=== PATIENT | female | born 1955 | race Caucasian/White ===

== ENCOUNTER → 2016-12-23 | Outpatient (CLI) | payer BC | END | disposition home or self-care (01) | LOC: MW.CHPM 08:19 | PROVIDERS: ATTEND Anesthesiology | DX: Z51.81 Encounter for therapeutic drug level monitoring (principal); Z79.891 Long term (current) use of opiate analgesic | CPT/HCPCS: 80305 ==

== ENCOUNTER → 2017-02-12 | Outpatient (CLI) | payer BC | LOC: MW.CHPM 09:09 | PROVIDERS: ATTEND Anesthesiology | DX: Z51.81 Encounter for therapeutic drug level monitoring (principal); Z79.891 Long term (current) use of opiate analgesic | CPT/HCPCS: 80305 ==

== ENCOUNTER 2017-07-22 11:55 | Day surgery (SDC) | payer BC ==
[~2017-07-22 11:55] MED LIST: Betamethasone Acetate/Betamethasone Sod Phosphate 30 MG/5 ML MDV ONE; Iopamidol 408 MG/ML 50 ML SDV ONE; Lidocaine 2% 5 ML SDV ONE; Ropivacaine 0.5% 5 MG/ML 30 ML SDV ONE
--- NOTE | 2017-07-22 19:45 | OR ---
SURGEON: Lisa Borrero D.O. DATE OF PROCEDURE: 07/22/2017 OR STAFF PRESENT: 1. Lakshmi Richmond RN. 2. Cyndy Tsang RN. 3. RT Taj. WOUND CLASSIFICATION: I. PREOPERATIVE DIAGNOSIS: Thoracic facet arthropathy. POSTOPERATIVE DIAGNOSIS: Thoracic facet arthropathy. PROCEDURE PERFORMED: 1.Diagnostic and therapeutic T7,T8,T9 medial branch blocks bilateral 2. Fluoroscopic guidance for needle placement 3. Local with oral Valium for sedation SCREENING QUESTIONS: The patient answered "No" to all the following questions: 1. Are you allergic to iodine, Betadine or latex? 2. Do you have a bleeding disorder? 3. Are you on anti-inflammatories or blood thinners? 4. Do you have any current local or systemic infections? MEDICAL NECESSITY: This is a patient with chronic low back pain who comes in for the above diagnostic procedure. This procedure is being performed in accordance with national guidelines written by the [employer]; please see medical necessity note in chart. DESCRIPTION OF PROCEDURE: The patient had the procedure thoroughly explained including risks, benefits and alternatives. Consent was signed in my clinic indicating understanding and willingness to proceed. The patient presented to [facility] and was escorted to the dressing room to disrobe and change into a hospital gown. Preoperative history and screening were performed by my nurse. Vital signs were taken and stable. The patient reported that Valium 10 milligrams was taken prior to the procedure. The patient was brought back to the procedure room and placed in the prone position on the procedure room table. A pillow was placed under the abdomen in order to flatten the lumbar lordosis. The back was prepped with ChloraPrep and sterilely draped. All personnel in the procedure room were dressed in appropriate attire including surgical scrubs, head and shoe covers. This was to ensure sterility while in the treatment room. During the time fluoroscopy was in use all personnel in the operating room wore lead wilkinson with thyroid collars. Sterile technique was used during the procedure. The fluoroscope was positioned to provide a right oblique view. Then the right T7 medial branch block was begun by anesthetizing the skin and soft tissues with 2 cubic centimeters of 2% Preservative-Free Lidocaine with a 25-gauge 1.5 inch needle. There were no signs of infection at the site of needle skin insertions. Using fluoroscopic guidance a sterile 22-gauge 3.5 inch spinal needle was positioned at the superior lateral transverse process of T8. Precise needle placement was confirmed by fluoroscopy and 0.2 cubic centimeters of IsoVue-200 contrast dye which was injected through microbore tubing under live fluoroscopy and showed no intravascular flow pattern and adequate flow over the target medial branch. Then 0.5 cubic centimeters of Celestone and then0.5% Ropivacaine Preservative- Free was injected slowly without complications after negative aspiration. This was repeated on the left side for the left T7 medial branch block as above. Then the fluoroscope was positioned to provide a right oblique view for the right T8 medial branch. This was begun by anesthetizing the skin and soft tissues. The fluoroscope was positioned and a sterile 22-gauge 3.5 inch needle was placed at the junction of the superior lateral border of transverse process of T9 vertebral body.. Precise needle placement was confirmed by fluoroscopy. Then 0.2 cubic centimeters of IsoVue-200 contrast dye was injected through microbore tubing under live fluoroscopy and showed no intravascular flow pattern and adequate flow over the target medial branch. After negative aspiration, 0.5 cubic centimeters of Celestone0.5% Ropivacaine was injected without complications. this was repeated for the left T8 medial branch block at the left superior lateral border of the T9 vertebral body as above. The fluoroscope was then positioned to provide a right T9 medial branch block This was begun by anesthetizing the skin and soft tissues over the right sacral sulcus. Then using fluoroscopic guidance, a sterile 22-gauge 3.5 inch spinal needle was positioned at the right superior lateral transverse process of the T10 vertebral body. Precise needle placement was confirmed by fluoroscopy in AP and oblique views, and 0.2 cubic centimeters of IsoVue-200 contrast dye was injected through microbore tubing under live fluoroscopy and showed no intravascular flow pattern and adequate flow over the target nerves. After negative aspiration, 0.5 cubic centimeters of Celestone and then 0.5% Ropivacaine was injected. No complications were noted. this was repeated for the left T9 medial branch block On the left side at the superior lateral border of the T10 transverse process as above. The procedure was well tolerated and vital signs were stable during and after the procedure. The staff escorted the patient to the recovery area. The patient was given both oral and written discharge and followup instructions. The patient will follow up with a pain diary which will be evaluated over this evening doing things that would normally cause pain. We will evaluate the efficacy of the diagnostic lumbar medial branch blocks as the patient will follow up in the clinic the next day. The patient was given both oral and written discharge and followup instructions. The patient voiced understanding including understanding of those signs and symptoms that would require emergency care and knows how to contact the office if there are any questions or concerns in the meantime. PREOPERATIVE PAIN: 05/15. POSTOPERATIVE PAIN: 10/15. FOLLOWUP: Follow up in the pain clinic in 3 weeks. HOGLATASHA / CHACHO /[id number] NANETTE
== END 2017-07-22 14:30 | disposition home or self-care (01) ==
LOC: MW.SDS 11:55
PROVIDERS: ATTEND Nurse Practitioner Family
DX: G89.4 Chronic pain syndrome (principal); M51.34 Other intervertebral disc degeneration, thoracic region; M50.10 Cervical disc disorder with radiculopathy, unspecified cervical region; G58.8 Other specified mononeuropathies; M79.1 Myalgia; Z88.1 Allergy status to other antibiotic agents; Z79.891 Long term (current) use of opiate analgesic; Z79.899 Other long term (current) drug therapy; Z98.890 Other specified postprocedural states
CPT/HCPCS: 64490; 64491; J0702; J2795; Q9966; 64450

== ENCOUNTER → 2020-01-31 | Day surgery (SDC) | payer BC ==
[~2020-01-31] MED LIST changes: +Acetaminophen/HYDROcodone 325-5 MG Tab PO PRN; -Betamethasone Acetate/Betamethasone Sod Phosphate 30 MG/5 ML MDV ONE; -Iopamidol 408 MG/ML 50 ML SDV ONE; +Lactated Ringers 1,000 ML IV SCH; +Midazolam 1 MG/ML 2 ML SDV ONE; +Propofol 200 MG/20 ML SDV ONE; -Ropivacaine 0.5% 5 MG/ML 30 ML SDV ONE; +Sodium Chloride 0.9% 10 ML SDV IV PRN; +Sodium Chloride 0.9% 10 ML Syringe FLUSH PRN; +Sodium Chloride 0.9% 2.5 ML Syringe FLUSH PRN; +fentaNYL 100 MCG/2 ML SDV ONE
--- NOTE | 2020-01-31 08:57 | PCM.PREANE ---
Preanesthetic Assessment - Anesthesia/Transfusion/Family Hx Anesthesia History: Prior Anesthesia Without Reaction Family History of Anesthesia Reaction: No Transfusion History: No Prior Transfusion(s) - Review of Systems General: No Symptoms Pulmonary: No Symptoms Cardiovascular: No Symptoms Gastrointestinal: No Symptoms Neurological: No Symptoms Other: Reports: None - Physical Assessment NPO Status Date: 01/30/20 Height: 5 ft 3 in Weight: 69.4 kg ASA Class: 2 Mental Status: Alert & Oriented x3 Dentition: Reports: Normal Dentition ROM/Head Extension: Full Lungs: Clear to Auscultation, Normal Respiratory Effort Cardiovascular: Regular Rate, Regular Rhythm - Allergies Allergies/Adverse Reactions: Allergies Allergy/AdvReac Type Severity Reaction Status Date / Time metronidazole [From Flagyl] Allergy Nausea Verified 01/28/20 13:53 - Anesthesia Plan Pre-Op Medication Ordered: None - Acknowledgements Anesthesia Type Planned: Spinal Pt an Appropriate Candidate for the Planned Anesthesia: Yes Alternatives and Risks of Anesthesia Discussed w Pt/Guardian: Yes Pt/Guardian Understands and Agrees with Anesthesia Plan: Yes Additional Comments: PMH: migraine, IS PLAN: spinal PreAnesthesia Questionnaire Gastrointestinal History: Reports: Irritable Bowel Syndrome Other Gastrointestinal History: c-diff 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 , Musculoskeletal History: Reports: Back Pain, Chronic Neurological History: Reports: Other (See Below) Other Neuro History: degenerative disc disease Psychiatric History: Reports: Anxiety - Infectious Disease History Infectious Disease History: Reports: None - Past Surgical History Head Surgeries/Procedures: Reports: None HEENT Surgical History: Reports: Detached Retina GI Surgical History: Reports: Colonoscopy Female Surgical History: Reports: Section, D&C, Tubal Ligation Other Female Surgeries/Procedures: x3 - SUBSTANCE USE Smoking Status *Q: Never Smoker Recreational Drug Use History: No - HOME MEDS Home Medications: Home Meds Escitalopram [Lexapro] 20 mg PO DAILY 10/24/15 [History] Clobetasol [Clobetasol Propionate 0.05%] 1 dose TOP ASDIRECTED 01/28/20 [History ] Hydrocodone/Acetaminophen [Hydrocodone-Acetamin 7.5-325] 1 tab PO ASDIRECTED PRN 01/28/20 [History] Montelukast [Singulair] 10 mg PO DAILY 01/28/20 [History] Multivitamin [Daily Multiple Vitamin] 1 tab PO DAILY 01/28/20 [History] - CURRENT (IN HOUSE) MEDS Current Meds: Current Medications Lactated Ringer's (Ringers, Lactated) 1,000 mls @ 500 mls/hr IV BOLUS KAMILAH Sodium Chloride (Saline Flush) 10 ml FLUSH ASDIRECTED PRN PRN Reason: Keep Vein Open Sodium Chloride (Saline Flush) 2.5 ml FLUSH ASDIRECTED PRN PRN Reason: Keep Vein Open Sodium Chloride (Normal Saline) 10 ml IV ASDIRECTED PRN PRN Reason: IV Use
--- NOTE | 2020-01-31 10:40 | PCM.OPNOTE ---
- General Post-Op/Procedure Note Date of Surgery/Procedure: 01/31/20 Operative Procedure(s): D & C hysteroscopy Findings: 8 week sized anteverted uterus Normal appearing cervix and vagina Hysteroscopy showed proliferative endometrium in the anterior uterine wall , posterior wall was atrophic Pre Op Diagnosis: Postmenopausal bleeding Post-Op Diagnosis: same Anesthesia Technique: Spinal Primary Surgeon: Cee Mireles Secondary Surgeon: Donnell Burr Pathology: Endometrial currettings Fluid Replacement, Intraop: 700 EBL in mLs: 0 Complications: None Condition: Good
--- NOTE | 2020-01-31 14:24 | PCM.POSTAN ---
POST ANESTHESIA ASSESSMENT - MENTAL STATUS Mental Status: Alert, Oriented - VITAL SIGNS Vital Signs: Last Vital Signs Temp 36.5 C 01/31/20 10:55 Pulse 48 L 01/31/20 11:30 Resp 16 01/31/20 11:30 BP 127/74 01/31/20 11:30 Pulse Ox 99 01/31/20 11:30 - RESPIRATORY Respiratory Status: Respiratory Rate WNL, Airway Patent, O2 Saturation Stable - CARDIOVASCULAR CV Status: Pulse Rate WNL, Blood Pressure Stable - GASTROINTESTINAL GI Status: No Symptoms - POST OP HYDRATION Hydration Status: Adequate & Stable
--- NOTE | 2020-01-31 14:35 | PCM48HPAN ---
Post Anesthesia Note - EVALUATION WITHIN 48HRS OF ANESTHETIC Vital Signs in Normal Range: Yes Patient Participated in Evaluation: Yes Respiratory Function Stable: Yes Airway Patent: Yes Cardiovascular Function Stable: Yes Hydration Status Stable: Yes Pain Control Satisfactory: Yes Nausea and Vomiting Control Satisfactory: Yes Mental Status Recovered: Yes Vital Signs: Last Vital Signs Temp 36.5 C 01/31/20 10:55 Pulse 52 L 01/31/20 12:30 Resp 18 01/31/20 12:30 BP 120/70 01/31/20 12:30 Pulse Ox 98 01/31/20 12:30
[2020-01-31 15:44] VITALS: BP 128/52; PULSE 48
--- NOTE | 2020-01-31 17:05 | OR ---
SURGEON: JAYASHREE LOYOLA DATE OF PROCEDURE: 01/31/2020 PREOPERATIVE DIAGNOSIS: A 65-year-old with some postmenopausal bleeding. POSTOPERATIVE DIAGNOSIS: A 65-year-old with some postmenopausal bleeding. PROCEDURES: D and C hysteroscopy. IV FLUIDS: 700. ESTIMATED BLOOD LOSS: 0. ANESTHESIA: Spinal. NOTES AND FINDINGS: An 8 weeks size anteverted uterus. Cervix appeared normal. The endometrium anteriorly was proliferative and posteriorly was atrophic. BRIEF HISTORY ABOUT THE PATIENT: She is a 65-year-old who came in complaining of postmenopausal bleeding. She had an endometrial biopsy which showed endometrial polyp with a focus of papillary metaplasia. We consulted with [facility]MER/Oncology, who recommended D & C hysteroscopy with a second read. The patient was consented for the procedure. She was explained the risks, benefits, and alternatives and she decided to proceed. PROCEDURE IN DETAIL: The patient was taken to the operating room where spinal anesthesia was performed without difficulty. She was prepared and draped in the dorsal supine position, with an Derrell stirrups. Bimanual examination showed the above-noted findings. A bivalve speculum was placed into the cervix. An Allis was used to grasp the anterior lip of the cervix. Uterus was carefully dilated to accommodate the 5 mm hysteroscope, which was advanced into the uterine cavity with the distending media. The endometrial cavity was distended with fluid and the cavity was visualized with the above-noted findings. Then, the hysteroscope was withdrawn and endometrial curetting was done with all mercer of the endometrium. Hysteroscope was then advanced again and the endometrium was visualized to ensure adequate curetting was done, which was noted. The hysteroscope was withdrawn from the endometrial cavity. The moderate amount of endometrium was sent to pathology and pathology was informed that it was a second read also. Pictures were taken of the endometrial cavity. Then, the endometrial curetting was done also again and moderate amount of tissue was sent for pathology, after which the Allis was removed from the anterior lip. The speculum was removed. All instrument and pad counts were correct x2. The patient was sent to the recovery room in stable condition. PEBBLES FLOR /[id number] NANETTE
== END | disposition home or self-care (01) ==
LOC: MW.SDS 08:15
PROVIDERS: ATTEND Obstetrics & Gynecology
DX: N85.8 Other specified noninflammatory disorders of uterus (principal); Z79.899 Other long term (current) drug therapy; Z88.8 Allergy status to other drugs, medicaments and biological substances
CPT/HCPCS: 36415; 58558; 85027; 88305; A9270; J2001; J2250; J2704; J3010; J7120; 00952

== ENCOUNTER 2020-11-23 08:11 | Emergency (ER) | payer BC ==
--- NOTE | 2020-11-23 08:15 | EDM.PDOC ---
ED HPI GENERAL MEDICAL PROBLEM - General Chief Complaint: Chest Pain Stated Complaint: TIGHTNESS IN CHEST Time Seen by Provider: 11/23/20 08:30 Source of Information: Reports: Patient History Limitations: Reports: No Limitations - History of Present Illness INITIAL COMMENTS - FREE TEXT/NARRATIVE: 65-year-old female past medical history hypertension, depression presents for chest pain. Patient is a good historian. She states that she has had on and off mild substernal chest pain that feels tight or stabbing for the last 2 to 3 days. She does note that she started working out over the last 3 days which she used to not do. She also notes that she has weaned herself off of her antidepressant over the last 1 month. This morning she woke up with an aching feeling in her left arm prompting her to seek medical attention. She denies any associated shortness of breath. She does note some generalized weakness yesterday with some feelings of nausea but no vomiting. She has never had a cardiac stress test. She does have follow-up with her primary care physician to discuss cardiac stress testing and all of these issues early next week, but wanted to rule out anything emergent prompting her ER visit this morning. - Related Data Allergies Allergy/AdvReac Type Severity Reaction Status Date / Time metronidazole [From Flagyl] Allergy Nausea Verified 11/23/20 08:13 Home Meds: Home Meds . 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 , Musculoskeletal History: Reports: Back Pain, Chronic Neurological History: Reports: Other (See Below) Other Neuro History: degenerative disc disease Psychiatric History: Reports: Anxiety - Infectious Disease History Infectious Disease History: Reports: None - Past Surgical History Head Surgeries/Procedures: Reports: None HEENT Surgical History: Reports: Detached Retina GI Surgical History: Reports: Colonoscopy Female Surgical History: Reports: Section, D&C, Tubal Ligation Other Female Surgeries/Procedures: x3 Social & Family History - Family History Family Medical History: No Pertinent Family History - Caffeine Use Caffeine Use: Reports: Coffee ED ROS GENERAL - Review of Systems Review Of Systems: Comprehensive ROS is negative, except as noted in HPI. ED EXAM, GENERAL - Physical Exam Exam: See Below Exam Limited By: No Limitations General Appearance: Alert, WD/WN, No Apparent Distress Throat/Mouth: Normal Voice, No Airway Compromise Head: Atraumatic, Normocephalic Respiratory/Chest: No Respiratory Distress, Lungs Clear, Normal Breath Sounds, No Accessory Muscle Use Cardiovascular: Normal Peripheral Pulses, Regular Rate, Rhythm, No Edema GI/Abdominal: Soft, Non-Tender Extremities: Normal Inspection Neurological: Alert Psychiatric: Normal Affect, Normal Mood Skin Exam: Warm, Dry, Intact, Normal Color #1 Interpretation EKG Date: 11/23/20 Time: 08:11 Rhythm: NSR Rate (Beats/Min): 58 [place]: Normal P-Wave: Present QRS: Normal ST-T: Normal QT: Normal NH/PQ Interval: 131 Comparison: NA - No Prior EKG EKG Interpretation Comments: no evidence of ischemia Course - Vital Signs Last Recorded V/S: Last Vital Signs Temp 95.4 F L 11/23/20 08:13 Pulse 63 11/23/20 08:13 Resp 18 11/23/20 08:13 BP 121/72 11/23/20 08:13 Pulse Ox 97 11/23/20 08:13 - Orders/Labs/Meds Orders: Active Orders 24 hr Category Date Time Status Cardiac Monitoring [RC] . DIRECTED Care 11/23/20 08:25 Active EKG Documentation Completion [RC] STAT Care 11/23/20 08:25 Active Pulse Oximetry [RC] ASDIRECTED Care 11/23/20 08:25 Active Sodium Chloride 0.9% [Saline Flush] Med 11/23/20 08:25 Active 10 ml FLUSH ASDIRECTED PRN Sodium Chloride 0.9% [Saline Flush] Med 11/23/20 08:25 Active 2.5 ml FLUSH ASDIRECTED PRN Saline Lock Insert [OM.PC] Stat Oth 11/23/20 08:25 Ordered Medication Orders Sodium Chloride (Saline Flush) 10 ml FLUSH ASDIRECTED PRN PRN Reason: Keep Vein Open Last Admin: 11/23/20 08:44 Dose: 10 ml Documented by: NICHOLE Sodium Chloride (Saline Flush) 2.5 ml FLUSH ASDIRECTED PRN PRN Reason: Keep Vein Open Last Admin: 11/23/20 08:44 Dose: 2.5 ml Documented by: NICHOLE Labs: Laboratory Tests 11/23/20 11/23/2011/23/21 Range/Units 08:19 08:19 08:19 WBC 7.08 (4.0-11.0) K/uL RBC 4.66 (4.30-5.90) M/uL Hgb 15.7 (12.0-16.0) g/dL Hct 46.0 (36.0-46.0) % MCV 98.7 H (80.0-98.0) fL MCH 33.7 H (27.0-32.0) pg MCHC 34.1 (31.0-37.0) g/dL RDW Std Deviation 45.5 (28.0-62.0) fl RDW Coeff of Alia 13 (11.0-15.0) % Plt Count 272 (150-400) K/uL MPV 9.90 (7.40-12.00) fL Neut % (Auto) 55.1 (48.0-80.0) % Lymph % (Auto) 30.2 (16.0-40.0) % [place] % (Auto) 6.4 (0.0-15.0) % Eos % (Auto) 7.3 H (0.0-7.0) % Baso % (Auto) 1.0 (0.0-1.5) % Neut # (Auto) 3.9 (1.4-5.7) K/uL Lymph # (Auto) 2.1 (0.6-2.4) K/uL [place] # (Auto) 0.5 (0.0-0.8) K/uL Eos # (Auto) 0.5 (0.0-0.7) K/uL Baso # (Auto) 0.1 (0.0-0.1) K/uL Nucleated RBC % 0.0 /100WBC Nucleated RBCs # 0 K/uL Sodium 141 (136-145) mmol/L Potassium 3.5 (3.5-5.1) mmol/L Chloride 103 (98-107) mmol/L Carbon Dioxide 29.0 (21.0-32.0) mmol/L BUN 12 (7.0-18.0) mg/dL Creatinine 0.9 (0.6-1.0) mg/dL Est Cr Clr Drug Dosing 48.63 mL/min Estimated GFR (MDRD) > 60.0 ml/min Glucose 95 (74-106) mg/dL Calcium 9.3 (8.5-10.1) mg/dL Total Bilirubin 0.5 (0.2-1.0) mg/dL AST 16 (15-37) IU/L ALT 33 (14-63) IU/L Alkaline Phosphatase 69 (46-116) U/L Troponin I < 0.050 (0.000-0.056) ng/mL B-Natriuretic Peptide 16 (<100) PG/ML Total Protein 8.4 H (6.4-8.2) g/dL Albumin 4.2 (3.4-5.0) g/dL Globulin 4.2 H (2.6-4.0) g/dL Albumin/Globulin Ratio 1.0 (0.9-1.6) 11/23/20 11/23/20 Range/Units 08:19 11:12 WBC (4.0-11.0) K/uL RBC (4.30-5.90) M/uL Hgb (12.0-16.0) g/dL Hct (36.0-46.0) % MCV (80.0-98.0) fL MCH (27.0-32.0) pg MCHC (31.0-37.0) g/dL RDW Std Deviation (28.0-62.0) fl RDW Coeff of Alia (11.0-15.0) % Plt Count (150-400) K/uL MPV (7.40-12.00) fL Neut % (Auto) (48.0-80.0) % Lymph % (Auto) (16.0-40.0) % [place] % (Auto) (0.0-15.0) % Eos % (Auto) (0.0-7.0) % Baso % (Auto) (0.0-1.5) % Neut # (Auto) (1.4-5.7) K/uL Lymph # (Auto) (0.6-2.4) K/uL [place] # (Auto) (0.0-0.8) K/uL Eos # (Auto) (0.0-0.7) K/uL Baso # (Auto) (0.0-0.1) K/uL Nucleated RBC % /100WBC Nucleated RBCs # K/uL Sodium (136-145) mmol/L Potassium (3.5-5.1) mmol/L Chloride (98-107) mmol/L Carbon Dioxide (21.0-32.0) mmol/L BUN (7.0-18.0) mg/dL Creatinine (0.6-1.0) mg/dL Est Cr Clr Drug Dosing mL/min Estimated GFR (MDRD) ml/min Glucose (74-106) mg/dL Calcium (8.5-10.1) mg/dL Total Bilirubin (0.2-1.0) mg/dL AST (15-37) IU/L ALT (14-63) IU/L Alkaline Phosphatase (46-116) U/L Troponin I Cancelled < 0.050 (0.000-0.056) ng/mL B-Natriuretic Peptide (<100) PG/ML Total Protein (6.4-8.2) g/dL Albumin (3.4-5.0) g/dL Globulin (2.6-4.0) g/dL Albumin/Globulin Ratio (0.9-1.6) Meds: Medications Generic Name Dose Route Start Last Admin Trade Name Freq PRN Reason Stop Dose Admin Sodium Chloride 10 ml 11/23/20 08:25 11/23/20 08:44 Saline Flush FLUSH 10 ml ASDIRECTED PRN Administration Keep Vein Open Sodium Chloride 2.5 ml 11/23/20 08:25 11/23/20 08:44 Saline Flush FLUSH 2.5 ml ASDIRECTED PRN Administration Keep Vein Open Discontinued Medications Generic Name Dose Route Start Last Admin Trade Name Freq PRN Reason Stop Dose Admin Aspirin 324 mg 11/23/20 08:27 11/23/20 08:44 Aspirin PO 11/23/20 08:28 324 mg ONETIME ONE Administration - Re-Assessments/Exams Free Text/Narrative Re-Assessment/Exam: 11/23/20 08:29 We will get cardiac work-up labs and reassess. 11/23/20 09:06 Initial set of labs are unremarkable. Will get 3-hour repeat troponin to ensure no elevation. If this lab test looks normal then I am comfortable with patient going home to follow-up with her doctor next week as she already has a good plan and demonstrates good health literacy and understands return precautions. 18/ 11:47 Patient's repeat troponin is normal. As discussed above patient will be discharged home with follow-up. Cardiology information was given to patient. Return precautions discussed. Departure - Departure Time of Disposition: 11:47 Disposition: Home, Self-Care 01 Condition: Good Clinical Impression: Chest pain Qualifiers: Chest pain type: unspecified Qualified Code(s): R07.9 - Chest pain, unspecified - Discharge Information Instructions: Nonspecific Chest Pain, Adult Referrals: Km Cline MD [Primary Care Provider] - Forms: ED Department Discharge Additional Instructions: Your labs were unremarkable. We repeated your troponin level 3 hours after arrival which remained negative. This means that your heart is not experiencing any of muscle tissue. However we cannot rule out the heart definitively as the cause of your pain so I do recommend you follow-up with your physician as you already have planned. I also provided information for the [facility] cardiology below. If you have worsening chest pain, difficulty breathing, or any new or concerning symptoms you are encouraged to return to the emergency department for reassessment. Thank you so much for allowing us to participate in your medical care today, and stay safe and healthy! [facility] [address] [place] [address] The following information is given to patients seen in the emergency department who are being discharged to home. This information is to outline your options for follow-up care. We provide all patients seen in our emergency department with a follow-up referral. The need for follow-up, as well as the timing and circumstances, are variable depending upon the specifics of your emergency department visit. If you don't have a primary care physician on staff, we will provide you with a referral. We always advise you to contact your personal physician following an emergency department visit to inform them of the circumstance of the visit and for follow-up with them and/or the need for any referrals to a consulting specialist. The emergency department will also refer you to a specialist when appropriate. This referral assures that you have the opportunity for follow-up care with a specialist. All of these measure are taken in an effort to provide you with optimal care, which includes your follow-up. Under all circumstances we always encourage you to contact your private physician who remains a resource for coordinating your care. When calling for follow-up care, please make the office aware that this follow-up is from your recent emergency room visit. If for any reason you are refused follow-up, please contact the [facility] Emergency Department at and asked to speak to the emergency department charge nurse. Please follow up with your primary care physician. If you do not have a primary care physician, see below: [facility] [address] [place] [id number] [facility] [address] [place] [address] [facility] [address] [place] [id number] Sepsis Event Note (ED) - Focused Exam Vital Signs: Vital Signs Temp Pulse Resp BP Pulse Ox 11/23/20 08:13 95.4 F L 63 18 121/72 97 - My Orders Last 24 Hours: My Active Orders 11/23/20 08:25 Cardiac Monitoring [RC] . DIRECTED EKG Documentation Completion [RC] STAT Pulse Oximetry [RC] ASDIRECTED Sodium Chloride 0.9% [Saline Flush] 10 ml FLUSH ASDIRECTED PRN Sodium Chloride 0.9% [Saline Flush] 2.5 ml FLUSH ASDIRECTED PRN Saline Lock Insert [OM.PC] Stat - Assessment/Plan Last 24 Hours: My Active Orders 11/23/20 08:25 Cardiac Monitoring [RC] . DIRECTED EKG Documentation Completion [RC] STAT Pulse Oximetry [RC] ASDIRECTED Sodium Chloride 0.9% [Saline Flush] 10 ml FLUSH ASDIRECTED PRN Sodium Chloride 0.9% [Saline Flush] 2.5 ml FLUSH ASDIRECTED PRN Saline Lock Insert [OM.PC] Stat
[2020-11-23] MEDS ORDERED: Sodium Chloride 0.9% 10 ML Syringe FLUSH PRN (08:25)
[2020-11-23] MEDS ORDERED: Sodium Chloride 0.9% 2.5 ML Syringe FLUSH PRN (08:25)
[2020-11-23] MEDS ORDERED: Aspirin 81 MG Tab.Chew PO ONE (08:27)
[2020-11-23 09:01] LABS: BLOOD UREA NITROGEN,BUN 12 mg/dL (7.0-18.0); CHLORIDE,CL 103 mmol/L (98-107); GLUCOSE RANDOM 95 mg/dL (74-106); POTASSIUM,K 3.5 mmol/L (3.5-5.1); SODIUM,NA 141 mmol/L (136-145)
--- NOTE | 2020-11-23 09:02 | CR ---
INDICATION: Chest pain TECHNIQUE: Chest 1 views COMPARISON: 08/29/2018. FINDINGS: Cardiovascular and mediastinum: Heart size and vasculature are normal in caliber and appearance. Lungs and pleural spaces: Lungs are clear. No sign of infiltrate or mass. No sign of pleural effusion. No pneumothorax. Bones and soft tissues: No significant findings. IMPRESSION: No acute findings and no significant changes from the prior exam. Dictated by Devan Ruiz MD @ Nov 23 2020 8:59AM Signed by Dr. Devan Ruiz @ Nov 23 2020 8:59AM
[2020-11-23 11:53] VITALS: BP 134/59; PULSE 59
== END 2020-11-23 12:00 | disposition home or self-care (01) ==
LOC: MW.ED 08:11
DX: R07.9 Chest pain, unspecified (principal); Z88.1 Allergy status to other antibiotic agents
CPT/HCPCS: 36415; 71045; 80053; 83880; 84484; 85025; 93005; 99285; A9270

== ENCOUNTER 2020-12-19 12:41 | Emergency (ER) | payer BC ==
[2020-12-19] MEDS ORDERED: Sodium Chloride 0.9% 1,000 ML IV ONE (13:04)
--- NOTE | 2020-12-19 13:06 | EDM.PDOC ---
ED HPI GENERAL MEDICAL PROBLEM - General Chief Complaint: Chest Pain Stated Complaint: CHEST PAIN Time Seen by Provider: 12/19/20 12:59 Source of Information: Reports: Patient History Limitations: Reports: No Limitations - History of Present Illness INITIAL COMMENTS - FREE TEXT/NARRATIVE: Patient is a 65-year-old female who presents today for chest tightness and palpitation. Patient that she was diagnosed with Covid on December 08 and since that time has been feeling tired and not herself. Patient also reports that whenever she walks up steps she gets increased shortness of breath and palpitations. Patient denies any leg swelling nausea vomiting decreased p.o. intake or other symptoms. Chest Pain Score (Numeric/FACES): 3 - Related Data Allergies Allergy/AdvReac Type Severity Reaction Status Date / Time metronidazole [From Flagyl] Allergy Nausea Verified 12/19/20 13:03 Home Meds: Home Meds . 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 , Musculoskeletal History: Reports: Back Pain, Chronic Other Musculoskeletal History: chronic neck pain Neurological History: Reports: Other (See Below) Other Neuro History: degenerative disc disease Psychiatric History: Reports: Anxiety - Infectious Disease History Infectious Disease History: Reports: None - Past Surgical History Head Surgeries/Procedures: Reports: None HEENT Surgical History: Reports: Detached Retina GI Surgical History: Reports: Colonoscopy Female Surgical History: Reports: Section, D&C, Tubal Ligation Other Female Surgeries/Procedures: x3 Social & Family History - Family History Family Medical History: No Pertinent Family History - Caffeine Use Caffeine Use: Reports: Coffee ED ROS GENERAL - Review of Systems Review Of Systems: See Below Constitutional: Reports: No Symptoms HEENT: Reports: No Symptoms Respiratory: Reports: No Symptoms Cardiovascular: Reports: Chest Pain Endocrine: Reports: No Symptoms GI/Abdominal: Reports: No Symptoms : Reports: No Symptoms Musculoskeletal: Reports: No Symptoms Skin: Reports: No Symptoms Neurological: Reports: No Symptoms Psychiatric: Reports: No Symptoms Hematologic/Lymphatic: Reports: No Symptoms Immunologic: Reports: No Symptoms ED EXAM, GENERAL - Physical Exam Exam: See Below Exam Limited By: No Limitations General Appearance: Alert, No Apparent Distress Eye Exam: Bilateral Eye: EOMI, PERRL Respiratory/Chest: No Respiratory Distress, Lungs Clear Cardiovascular: Normal Peripheral Pulses, Regular Rate, Rhythm GI/Abdominal: Normal Bowel Sounds, Soft, Non-Tender Extremities: Normal Inspection, Normal Range of Motion Neurological: Alert, Oriented, Normal Cognition, Normal Gait #1 Interpretation EKG Date: 12/19/20 Time: 12:55 Rhythm: Other (sinus tachy) Rate (Beats/Min): 117 ST-T: Normal Course - Vital Signs Last Recorded V/S: Last Vital Signs Temp 98 F 12/19/20 13:04 Pulse 98 12/19/20 15:05 Resp 18 12/19/20 15:05 BP 147/79 H 12/19/20 15:05 Pulse Ox 95 12/19/20 15:05 - Orders/Labs/Meds Orders: Active Orders 24 hr Category Date Time Status EKG Documentation Completion [RC] STAT Care 12/19/20 12:46 Active Holter Monitor 24 Hours [RC] .PRN Care 12/19/20 15:16 Ordered Labs: Laboratory Tests 12/19/20 12/19/20 12/19/20 Range/Units 12:48 12:48 12:48 WBC 9.64 (4.0-11.0) K/uL RBC 4.82 (4.30-5.90) M/uL Hgb 16.0 (12.0-16.0) g/dL Hct 46.1 H (36.0-46.0) % MCV 95.6 (80.0-98.0) fL MCH 33.2 H (27.0-32.0) pg MCHC 34.7 (31.0-37.0) g/dL RDW Std Deviation 43.6 (28.0-62.0) fl RDW Coeff of Alia 13 (11.0-15.0) % Plt Count 298 (150-400) K/uL MPV 10.30 (7.40-12.00) fL Neut % (Auto) 78.6 (48.0-80.0) % Lymph % (Auto) 17.4 (16.0-40.0) % [place] % (Auto) 3.7 (0.0-15.0) % Eos % (Auto) 0.1 (0.0-7.0) % Baso % (Auto) 0.2 (0.0-1.5) % Neut # (Auto) 7.6 H (1.4-5.7) K/uL Lymph # (Auto) 1.7 (0.6-2.4) K/uL [place] # (Auto) 0.4 (0.0-0.8) K/uL Eos # (Auto) 0.0 (0.0-0.7) K/uL Baso # (Auto) 0.0 (0.0-0.1) K/uL Nucleated RBC % 0.0 /100WBC Nucleated RBCs # 0 K/uL D-Dimer, Quantitative 0.20 (0.0-0.50) mg/L FEU Sodium 140 (136-145) mmol/L Potassium 3.3 L (3.5-5.1) mmol/L Chloride 102 (98-107) mmol/L Carbon Dioxide 24.2 (21.0-32.0) mmol/L BUN 16 (7.0-18.0) mg/dL Creatinine 1.2 H (0.6-1.0) mg/dL Est Cr Clr Drug Dosing 36.47 mL/min Estimated GFR (MDRD) 44.9 ml/min Glucose 129 H (74-106) mg/dL Calcium 9.2 (8.5-10.1) mg/dL Total Bilirubin 0.3 (0.2-1.0) mg/dL AST 23 (15-37) IU/L ALT 36 (14-63) IU/L Alkaline Phosphatase 71 (46-116) U/L Creatine Kinase 32 (26-308) U/L Troponin I < 0.050 (0.000-0.056) ng/mL Total Protein 8.6 H (6.4-8.2) g/dL Albumin 4.4 (3.4-5.0) g/dL Globulin 4.2 H (2.6-4.0) g/dL Albumin/Globulin Ratio 1.1 (0.9-1.6) Meds: Medications Discontinued Medications Generic Name Dose Route Start Last Admin Trade Name Freq PRN Reason Stop Dose Admin Sodium Chloride 1,000 mls @ 999 mls/hr 12/19/20 13:04 12/19/20 13:23 Normal Saline IV 12/19/20 14:04 999 mls/hr .BOLUS ONE Administration Iopamidol 75 ml 12/19/20 14:16 12/19/20 14:19 Iopamidol 755 Mg/Ml 500 Ml Multipack Bottle IVPUSH 12/19/20 14:17 75 ml ONETIME STA Administration Departure - Departure Time of Disposition: 15:16 Disposition: Home, Self-Care 01 Condition: Good Clinical Impression: SOB (shortness of breath), Palpitation Instructions: Palpitations, [id number], Shortness of Breath, Adult, [id number] Referrals: PCP,None [Primary Care Provider] - Forms: ED Department Discharge Additional Instructions: The following information is given to patients seen in the emergency department who are being discharged to home. This information is to outline your options for follow-up care. We provide all patients seen in our emergency department with a follow-up referral. The need for follow-up, as well as the timing and circumstances, are variable depending upon the specifics of your emergency department visit. If you don't have a primary care physician on staff, we will provide you with a referral. We always advise you to contact your personal physician following an emergency department visit to inform them of the circumstance of the visit and for follow-up with them and/or the need for any referrals to a consulting specialist. The emergency department will also refer you to a specialist when appropriate. This referral assures that you have the opportunity for follow-up care with a specialist. All of these measure are taken in an effort to provide you with optimal care, which includes your follow-up. Under all circumstances we always encourage you to contact your private hysician who remains a resource for coordinating your care. When calling for follow-up care, please make the office aware that this follow-up is from your recent emergency room visit. If for any reason you are refused follow-up, please contact the [facility] Emergency Department at and asked to speak to the emergency department charge nurse. Please follow up with your primary care physician. If you do not have a primary care physician, see below: Cardiac Rehabilitation at [address] [address] Please continue to follow-up with your primary care physician also your product support rep as scheduled next month. We will send you home with a Holter scott sena that she will wear and mail back to product support rep. In that time if you have any chest pain or other concerning symptoms please return to the ED. Sepsis Event Note (ED) - Focused Exam Vital Signs: Vital Signs Temp Pulse Resp BP Pulse Ox 12/19/20 15:05 98 18 147/79 H 95 12/19/20 13:04 98 F 117 H 22 H 141/99 H 96 - My Orders Last 24 Hours: My Active Orders 12/19/20 15:16 Holter Monitor 24 Hours [RC] .PRN - Assessment/Plan Last 24 Hours: My Active Orders 12/19/20 15:16 Holter Monitor 24 Hours [RC] .PRN Plan: Patient is a 65-year-old female who presents today for chest palpitations and shortness of breath. Patient recently was diagnosed with Covid. Patient EKG is sinus tach. Will get labs CT to rule out PE and reassess patient.
[2020-12-19 13:26] LABS: BLOOD UREA NITROGEN,BUN 16 mg/dL (7.0-18.0); CARBON DIOXIDE,CO2 24.2 mmol/L (21.0-32.0); CHLORIDE,CL 102 mmol/L (98-107); GLUCOSE RANDOM 129 mg/dL (74-106); POTASSIUM,K 3.3 mmol/L (3.5-5.1); SODIUM,NA 140 mmol/L (136-145)
[2020-12-19] MEDS ORDERED: Iopamidol 755 MG/ML 500 ML Multipack Bottle IVPUSH STA (14:16)
--- NOTE | 2020-12-19 15:00 | CT ---
INDICATION: Chest pain. Tested positive for COVID 12/08/2020. COMPARISON: 11/23/2020 chest x-ray. TECHNIQUE: CT chest angiography PE protocol with IV contrast. 75 cc IV [id number]. FINDINGS: No filling defect to indicate acute PE. Heart size is normal. No pericardial effusion. No enlarged lymph nodes identified in the chest. Small accessory splenule. Imaged upper abdomen is otherwise unremarkable. Degenerative changes in the spine. Biapical pleural-parenchymal scarring. Mild dependent atelectasis. No focal lung consolidation, pleural effusion or pneumothorax. No suspicious pulmonary nodule or mass. IMPRESSION: 1. No evidence of acute PE. 2. Minimal dependent atelectasis. Otherwise no acute abnormality. Please note that all CT scans at this facility use dose modulation, iterative reconstruction, and/or weight-based dosing when appropriate to reduce radiation dose to as low as reasonably achievable. Dictated by Jayson Silvestre MD @ Dec 19 2020 2:53PM Signed by Dr. Jayson Silvestre @ Dec 19 2020 2:58PM
[2020-12-19 15:36] VITALS: BP 142/80; PULSE 76
== END 2020-12-19 15:40 | disposition home or self-care (01) ==
LOC: MW.ED 12:41
DX: R06.02 Shortness of breath (principal); R00.2 Palpitations; R07.89 Other chest pain; R00.0 Tachycardia, unspecified; Z88.1 Allergy status to other antibiotic agents
CPT/HCPCS: 36415; 71275; 80053; 82550; 84484; 85025; 85379; 93005; 99285; J7030; Q9967

== ENCOUNTER 2022-04-15 22:02 | Emergency (ER) | payer MEDICARE, OTHER ==
[2022-04-15] MEDS ORDERED: Sodium Chloride 0.9% 2.5 ML Syringe FLUSH PRN (22:05)
[2022-04-15] MEDS ORDERED: Sodium Chloride 0.9% 10 ML Syringe FLUSH PRN (22:05)
[2022-04-15] MEDS ORDERED: Aspirin 81 MG Tab.Chew PO ONE (22:05)
[2022-04-15] MEDS: Nitroglycerin 0.4 MG Tab.SL SL PRN (22:22)
[2022-04-15 22:54] LABS: POTASSIUM,K 3.4 mmol/L (3.5-5.1)
[2022-04-16] MEDS: Nitroglycerin 0.4 MG Tab.SL SL PRN (00:52)
[2022-04-16] MEDS ORDERED: Isosorbide Mononitrate 30 MG Tab.ER PO ONE (01:45)
[2022-04-16 01:55] VITALS: BP 132/65; PULSE 62
== END 2022-04-16 01:59 | disposition home or self-care (01) ==
LOC: MW.ED 22:02
DX: I20.9 Angina pectoris, unspecified (principal); Z20.822 Contact with and (suspected) exposure to COVID-19; Z88.1 Allergy status to other antibiotic agents
CPT/HCPCS: 36415; 71045; 80053; 83735; 84484; 85025; 93005; 99285; A9270; J3490; U0002; 93010

== ENCOUNTER 2022-05-24 04:57 | Emergency (ER) | payer MEDICARE, OTHER ==
[2022-05-24] MEDS ORDERED: Sodium Chloride 0.9% 10 ML Syringe FLUSH PRN (05:23)
[2022-05-24] MEDS ORDERED: Sodium Chloride 0.9% 2.5 ML Syringe FLUSH PRN (05:23)
[2022-05-24] MEDS ORDERED: LORazepam 2 MG/ML SDV IVPUSH ONE ×2 (05:24→05:56)
[2022-05-24 06:02] LABS: POTASSIUM,K 3.6 mmol/L (3.5-5.1)
[2022-05-24 06:43] VITALS: BP 123/51; PULSE 62
== END 2022-05-24 06:38 | disposition home or self-care (01) ==
LOC: MW.ED 04:57
DX: F41.0 Panic disorder [episodic paroxysmal anxiety] (principal); Z88.1 Allergy status to other antibiotic agents; Z79.899 Other long term (current) drug therapy
CPT/HCPCS: 36415; 80053; 83735; 84484; 85025; 93005; 96374; 99284; J2060; J3490; 93010